=== PATIENT | male | born 1960 | race Caucasian/White ===

== ENCOUNTER 2018-07-12 17:18 | Emergency (ER) | payer OTHER ==
[2018-07-12 17:32] VITALS: RESP 18; TEMP 98.2
--- NOTE | 2018-07-12 17:55 | ED ---
Wound/Laceration HPI - General Chief Complaint: Wound/Laceration Stated Complaint: fall Time Seen by Provider: 07/12/18 17:38 Source: patient, RN notes reviewed, old records reviewed Mode of arrival: ambulatory Limitations: no limitations - History of Present Illness Initial Comments: This patient's 57-year-old male presents in the emergency department today with chief complaint of a bruise over the right side of his abdomen. Patient reports that today while he was tying his boat to the dark he slipped and fell on the right side of his abdomen hit the corner of the boat. Patient reports that he sustained a bruise over the right lower quadrant and right upper quadrant. He reports that he has no significant abdominal pain. Passing gas. No vomiting. He denies any back pain. Patient reports that he has had no urinary symptoms. At this time patient's friend who is with him is concerned due to the bruising spreading further down. Patient reports injury occurred at 11 AM. He does have a small abrasion that was covered with a Band-Aid. - Related Data Home Medications Medication Instructions Recorded Confirmed Atorvastatin [Lipitor] 20 mg PO HS 07/12/18 07/12/18 Fish Oil/Dha/Epa [Fish Oil 1,200 1 cap PO HS 07/12/18 07/12/18 mg Fish Oil] Fluticasone Nasal [place] [Flonase 2 spr EA NOSTRIL DAILY 07/12/18 07/12/18 Nasal [place]] Multivitamins, Thera [Multivitamin 1 tab PO DAILY 07/12/18 07/12/18 (formulary)] PARoxetine [Paxil] 5 mg PO HS 07/12/18 07/12/18 Pantoprazole Sodium [Protonix] 40 mg PO DAILY 07/12/18 07/12/18 Allergies Allergy/AdvReac Type Severity Reaction Status Date / Time No Known Allergies Allergy Verified 07/12/18 17:38 Review of Systems ROS Statement: Those systems with pertinent positive or pertinent negative responses have been documented in the HPI. ROS Other: All systems not noted in ROS Statement are negative. Past Medical History Past Medical History: No Reported History History of Any Multi-Drug Resistant Organisms: None Reported Past Surgical History: Hernia Repair Past Psychological History: No Psychological Hx Reported Smoking Status: Never smoker Past Alcohol Use History: Occasional Past Drug Use History: None Reported General Exam - General Exam Comments Initial Comments: This is a 57 year old male, no distress. Limitations: no limitations General appearance: alert, in no apparent distress Head exam: Present: atraumatic, normocephalic, normal inspection Eye exam: Present: normal appearance, PERRL, EOMI. Absent: scleral icterus, conjunctival injection, periorbital swelling ENT exam: Present: normal exam, mucous membranes moist Neck exam: Present: normal inspection. Absent: tenderness, meningismus, lymphadenopathy Respiratory exam: Present: normal lung sounds bilaterally. Absent: respiratory distress, wheezes, rales, rhonchi, stridor Cardiovascular Exam: Present: regular rate, normal rhythm, normal heart sounds. Absent: systolic murmur, diastolic murmur, rubs, gallop, clicks GI/Abdominal exam: Present: soft, normal bowel sounds. Absent: distended, tenderness (over 8cm contusion on RLQ with less than 1cm lacreation that bleeding is well controlled. No tenderness, No CVA or back pain. ), guarding, rebound, rigid Back exam: Present: normal inspection Neurological exam: Present: alert, oriented X3, CN II-XII intact Psychiatric exam: Present: normal affect, normal mood Skin exam: Present: warm, dry, intact, normal color. Absent: rash Course Vital Signs 07/12/18 17:29 Temperature 98.2 F Pulse Rate 79 Respiratory 18 Rate Blood Pressure 135/76 O2 Sat by Pulse 98 Oximetry Medical Decision Making - Medical Decision Making This patient's a 57-year-old male presents emergency from stated she planned contusion over the right lower quadrant of his abdomen. He was tying his boat dock when he fell. This occurred at approximately 11 AM. He reports that he landed on the portion of the boat and caused a small laceration over the right side of his abdomen. The bleeding is well-controlled and place a Band-Aid over it. He has an area of ecchymosis measuring approximately 10 cm x 6 cm. Patient was concerned that the bruising was spreading. He denies any abdominal pain. This time I discussed without any abdominal tenderness very low unlikely for any concern for internal bleeding. He did have some stools and urination which is normal. Extremity perform a right upper quadrant ultrasound taking live for any concern for fluid collection or laceration. This is negative for any acute changes. Patient reported this time is likely going to be sore. He can apply ice over the area. Discussed that the pain seems to occur he is feels weak or any other symptoms or return for reevaluation. Patient history plan will comply. Return parameters were discussed. - Radiology Data Radiology results: report reviewed Normal right upper quadrant abdominal sonogram. No gallstones or dilate ducts. No free fluid. Disposition Clinical Impression: Abdominal wall contusion, Abrasion Disposition: HOME SELF-CARE Condition: Good Instructions: Abrasion (ED), Contusion in Adults (ED) Additional Instructions: Patient has a Motrin Tylenol for pain. He can apply ice over the area. He have any worsening abdominal pain, changes in stools or urination or any other abnormal symptoms. Return to emergency department for reevaluation. Is patient prescribed a controlled substance at d/c from ED?: No Referrals: Tin Mccann MD [Primary Care Provider] - 1-2 days Time of Disposition: 18:34
--- NOTE | 2018-07-12 18:24 | US ---
EXAMINATION TYPE: US abdomen limited DATE OF EXAM: 07/12/2018 COMPARISON: NONE CLINICAL HISTORY: Pain. RUQ pain, patient fell earlier today and has bruising RLQ EXAM MEASUREMENTS: Liver Length: 16.9 cm Gallbladder Wall: 0.3 cm CBD: 0.3 cm Right Kidney: 11.8 x 4.9 x 5.4 cm Pancreas: limited evaluation due to overlying bowel content Liver: appears wnl Gallbladder: no evidence of stones Evidence for sonographic Wasserman's sign: no CBD: appears wnl Right Kidney: no evidence of hydronephrosis or mass as visualized IMPRESSION: Normal right upper quadrant abdominal sonogram. No gallstones or dilated ducts. No free f luid.
[2018-07-12 18:56] VITALS: BP 125/64; PULSE 76
== END 2018-07-12 18:56 | disposition home or self-care (01) ==
LOC: EC 17:18
DX: S31.113A Laceration without foreign body of abdominal wall, right lower quadrant without penetration into peritoneal cavity, initial encounter (principal); Z79.51 Long term (current) use of inhaled steroids; Z79.899 Other long term (current) drug therapy; W01.198A Fall on same level from slipping, tripping and stumbling with subsequent striking against other object, initial encounter; Y93.89 Activity, other specified; Y92.89 Other specified places as the place of occurrence of the external cause
CPT/HCPCS: 76705; 99284